=== PATIENT | female | born 1970 | race Caucasian/White ===

== ENCOUNTER 2017-10-30 16:05 | Emergency (ER) | payer BC ==
[~2017-10-30] VITALS: Ht 165.1 cm; Wt 65.9 kg
[~2017-10-30 16:05] MED LIST: ALER-CAP25 M1 PO; ENDOCET 5-3251 EACH PO; NOHOMEMEDS; Tylenol Regular Stre PO
[2017-10-30 16:59] LABS: APPEARANCE CLOUDY ((CLEAR)); BILIRUBIN NEGATIVE; BLOOD NEGATIVE; COLOR YELLOW ((YELLOW)); GLUCOSE (STRIP) NEGATIVE; KETONES 5; LEUKOCYTES NEGATIVE; NITRITE NEGATIVE; PROTEIN (STRIP) NEGATIVE; SPECIFIC GRAVITY 1.021 (1.000-1.030); UROBILINOGEN 0.2 MG/DL (0.2-1.0)
[2017-10-30 17:17] LABS: BACTERIA RARE /HPF; EPITHELIAL CELLS NONE SEEN /HPF; MUCUS RARE /LPF; RED BLOOD CELLS NONE SEEN /HPF (0-5); WHITE BLOOD CELLS NONE SEEN /HPF (0-5)
[2017-10-30 17:18] LABS: AMORPHOUS PHOSPHATE CRYSTALS 2+; FINE GRANULAR CASTS RARE /LPF
[2017-10-30] MEDS ORDERED: FIORICET 50-301 EAC1 PO (18:04)
[2017-10-30] MEDS ORDERED: MOTRIN800 MG PO (18:04)
[2017-10-30] MEDS ORDERED: REGLAN10 MG PO (18:04)
[2017-10-30 18:32] VITALS: BP 112/77
== END 2017-10-30 18:34 | disposition home or self-care (01) ==
LOC: EME 16:05
PROVIDERS: Physician Assistant
DX: G43.009 Migraine without aura, not intractable, without status migrainosus (principal); E86.0 Dehydration; Z88.2 Allergy status to sulfonamides
CPT/HCPCS: 81003; 99281; 99284; J1200; J1885; J2765; J7030